=== PATIENT | male | born 2000 | race Caucasian/White ===

== ENCOUNTER 2019-12-18 04:42 | Day surgery (SDC) | payer OTHER ==
[~2019-12-18] VITALS: Ht 172.7 cm; Wt 75.0 kg
[2019-12-18] VITALS (7 sets, daily range): BP systolic 103–121; BP diastolic 53–71
[2019-12-18] MEDS ORDERED: MORPHINE 4 MG/ML 1ML VIAL/SYRINGE (J2270) IV ONE (05:00)
[2019-12-18] MEDS ORDERED: NS 1,000 ML IV ONE (05:00)
[2019-12-18] MEDS ORDERED: ceFAZolin SOD 2 GM in IV 1 EA IV ONE (05:00)
[2019-12-18 05:10] LABS: BASO % 0.4 % (0.0-1.0); EOS # 0.1 10^3/uL (0.0-0.5); EOS % 0.9 % (0.0-3.0); HEMATOCRIT 40.4 % (42.0-52.0); HEMOGLOBIN 13.4 g/dl (13.5-17.5); LYMPH # 1.6 10^3/uL (1.5-5.0); LYMPH % 16.8 % (24.0-44.0); MEAN CORPUSCULAR HEMOGLOBIN 30.7 pg (27.0-33.0); MEAN CORPUSCULAR HGB CONC 33.2 g/dl (32.0-36.5); MEAN CORPUSCULAR VOLUME 92.7 fl (80.0-96.0); MONO # 0.7 10^3/uL (0.0-0.8); MONO % 6.8 % (0.0-5.0); NEUTROPHILS # 7.3 10^3/uL (1.5-8.5); NEUTROPHILS % 74.8 % (36.0-66.0); PLATELET COUNT, AUTOMATED 220 10^3/uL (150-450); RED BLOOD COUNT 4.36 10^6/uL (4.30-6.10); WHITE BLOOD COUNT 9.7 10^3/uL (4.0-10.0)
[2019-12-18 05:23] LABS: INR 1.14; PROTHROMBIN TIME 14.3 SECONDS (11.8-14.0)
[2019-12-18 05:24] LABS: PARTIAL THROMBOPLASTIN TIME 26.5 SECONDS (25.0-38.4)
[2019-12-18 05:36] LABS: ACETAMINOPHEN LEVEL < 2.0 UG/ML (10.0-30.0); BLOOD UREA NITROGEN 15 MG/DL (7-18); CALCIUM LEVEL 8.6 MG/DL (8.5-10.1); CARBON DIOXIDE LEVEL 27 MEQ/L (21-32); CHLORIDE LEVEL 107 MEQ/L (98-107); CREATININE FOR GFR 0.94 MG/DL (0.70-1.30); ETHYL ALCOHOL (ETHANOL) < 0.003 % (0.000-0.010); GLOMERULAR FILTRATION RATE > 60.0 (>60); GLUCOSE, FASTING 110 MG/DL (70-100); POTASSIUM SERUM 3.9 MEQ/L (3.5-5.1); SALICYLATE LEVEL < 1.7 MG/DL (5.0-30.0); SODIUM LEVEL 144 MEQ/L (136-145)
[2019-12-18] MEDS ORDERED: ceFAZolin SOD 2 GM in D5W MINI-BAG PLUS 50 ML IV SCH (06:30)
[2019-12-18] MEDS ORDERED: ONDANSETRON 4MG/2ML VIAL IV PRN ×2 (06:30→17:30)
[2019-12-18] MEDS ORDERED: MOM 30ML SUSPENSION UDC PO PRN (06:30)
[2019-12-18] MEDS ORDERED: BISACODYL 10 MG SUPP PR PRN (06:30)
[2019-12-18] MEDS ORDERED: ACETAMINOPHEN TAB 650MG DOSE (2X325MG) PO PRN ×2 (06:30→17:30)
[2019-12-18] MEDS ORDERED: NORCO, ANEXSIA 5/325MG TABLET (HYDROcodone/ACETAMINOPHEN) PO PRN (06:30)
[2019-12-18] MEDS: NS 1,000 ML IV SCH ×2 (09:23→14:26)
[2019-12-18] MEDS: ceFAZolin SOD 2 GM in IV 1 EA IV SCH ×2 (13:34→21:05)
[2019-12-18] MEDS ORDERED: fentaNYL 100 MCG/2 ML INJECTION (J3010) As Ordered ONE (14:54)
[2019-12-18] MEDS ORDERED: LIDOCAINE 2% 100MG/5ML SDV (FOR ANES.) As Ordered ONE (14:54)
[2019-12-18] MEDS ORDERED: propofoL 200 MG/20 ML VIAL As Ordered ONE (14:54)
[2019-12-18] MEDS ORDERED: MIDAZOLAM INJ 2MG/2ML VIAL (J2250 PER 1MG) As Ordered ONE (14:55)
[2019-12-18] MEDS ORDERED: ONDANSETRON 4MG/2ML VIAL As Ordered ONE ×2 (16:02→18:11)
[2019-12-18] MEDS ORDERED: dexameTHASONE 4 MG/ML 1ML VIAL (J1100 PER 1MG) As Ordered ONE (16:02)
[2019-12-18] MEDS ORDERED: BUPIVACAINE HCL 0.25% 30ML VIAL As Ordered ONE (16:26)
[2019-12-18] MEDS ORDERED: ceFAZolin 2 GM/D5W 50 ML IV BAG (J0690 PER 500MG) As Ordered ONE (16:29)
[2019-12-18] MEDS ORDERED: ACETAMINOPHEN 1000MG 100ML IV BTL (OFIRMEV) (J0131 PER 10MG) As Ordered ONE (16:40)
[2019-12-18] MEDS ORDERED: KETOROLAC 60 MG/2 ML VIAL As Ordered ONE (16:42)
[2019-12-18] MEDS ORDERED: oxyCODONE 5MG TAB PO PRN (17:30)
[2019-12-18] MEDS ORDERED: fentaNYL 100 MCG/2 ML INJECTION (J3010) IV PRN (17:30)
[2019-12-18] MEDS ORDERED: LR 1,000 ML IV SCH ×2 (17:30)
[2019-12-18] MEDS ORDERED: oxyCODONE 5MG TAB As Ordered ONE (18:12)
--- NOTE | 2019-12-18 21:20 | MHCRPDOC ---
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 He reports having history of depression that is been untreated. He gen erally reports that he has increasing low mood, fatigue, loss of interest in apathy that is become increasingly problematic. PAST PSYCHIATRIC HISTORY: reports being tried on Prozac when is a danger no history of inpatient admissions or suicide attempts PAST MEDICAL HISTORY: currently getting antibiotics will not be finished until 1 PM tomorrow FAMILY HISTORY: Father: depression Siblings: depression PERSONAL AND SOCIAL HISTORY: The patient was born and raised in [place]. Resides in: [place] Marital Status: S Single Children: none Employment: active duty SUBSTANCE ABUSE HISTORY: Smoking: denies ETOH: social drinking Illicit Drugs: denies LEGAL HISTORY: none noted MENTAL STATUS EXAMINATION: General: Well dressed with good hygiene Speech: Spontaneous and fluid Thought processes: Linear and logical Thought content: profound hopelessness Abstract reasoning, and computation: Intact Description of associations: Intact Description of abnormal or psychotic thoughts: no suicidal thoughts at this time Judgment: fair Insight: fair Orientation: Alert and orientated 3 Recent and remote memory: Intact Attention span and concentration: Intact Fund of knowledge: Adequate Mood: "okay" Affect: profoundly dysthymic DIAGNOSIS: 1. Major depressive disorder, recurrent, severe without psychotic features. PLAN: 1. Start Wellbutrin 150 mg daily, xl, starting tomorrow morning, order will be placed. Screens negative for eating disorders and seizures 2. Admission to inpatient mental health after 1 PM once he receives his final dose of antibiotics as we are unable to accommodate intravenous fluids on our unit. Vital Signs Vital Signs Date Time Temp Pulse Resp B/P (MAP) Pulse Ox O2 Delivery O2 Flow Rate FiO2 12/18/19 20:05 97.2 71 15 116/66 (83) 98 Room Air Laboratory Data 24H Labs Laboratory Tests 2 12/18/19 04:58: Anion Gap 10, Glomerular Filtration Rate > 60.0, Calcium Level 8.6, Salicylates Level < 1.7L, Acetaminophen Level < 2.0L, Ethyl Alcohol Level < 0.003 12/18/19 04:59: Immature Granulocyte % (Auto) 0.3, Neutrophils (%) (Auto) 74.8H, Lymphocytes (%) (Auto) 16.8L, Monocytes (%) (Auto) 6.8H, Eosinophils (%) (Auto) 0.9, Basophils (%) (Auto) 0.4, Neutrophils # (Auto) 7.3, Lymphocytes # (Auto) 1.6, Monocytes # (Auto) 0.7, Eosinophils # (Auto) 0.1, Basophils # (Auto) 0.0, Nucleated Red Blood Cells % (auto) 0.0, Prothrombin Time 14.3H, Prothromb Time International Ratio 1.14, Activated Partial Thromboplast Time 26.5 12/18/19 12:35: Coronavirus (COVID-19)(PCR) NEGATIVE Home Medications Current Medications Current Medications Medications (Trade) Dose Ordered Sig/Ruben Route PRN Reason Start Time Stop Time Status Last Admin Dose Admin Acetaminophen (Tylenol Tab) 650 mg Q4HP PRN PO MILD PAIN or TEMP > 101 12/18/19 06:30 12/18/19 17:26 DC Acetaminophen (Tylenol Tab) 650 mg Q4HP PRN PO MILD PAIN 12/18/19 17:30 Acetaminophen/ Hydrocodone Bitart ([place], Anexsia 5/325) 1 tab Q6H PRN PO MILD/MODERATE PAIN (PS 1-7) 12/18/19 06:30 12/18/19 17:28 DC 12/18/19 08:33 Bisacodyl (Dulcolax Suppository) 10 mg DAILYPRN PRN [place] CONSTIPATION 12/18/19 06:30 12/18/19 17:29 DC Cefazolin Sodium 2 gm/Dextrose 50 ml @ 100 mls/hr Q8H IV 12/18/19 06:30 12/18/19 07:41 DC Cefazolin Sodium/ Dextrose 2 gm/IV Miscellaneous Supplies 50 ml @ 75 mls/hr Q8H IV 12/18/19 13:00 12/19/19 05:39 12/18/19 21:05 Fentanyl Citrate (Sublimaze) 25 mcg Q5MP PRN IV PAIN LEVEL 5-10 12/18/19 17:30 12/18/19 18:30 DC Home Med (Med Rec Complete!) ASDIRECTED XX 12/18/19 06:30 12/18/19 06:21 DC Lactated Ringer's 1,000 ml @ 100 mls/hr Q10H IV 12/18/19 17:30 12/18/19 18:30 DC 12/18/19 17:15 Lactated Ringer's 1,000 ml @ 125 mls/hr Q8H IV 12/18/19 17:30 12/18/19 18:38 Magnesium Hydroxide (Milk Of Magnesia) 30 ml DAILYPRN PRN PO CONSTIPATION 12/18/19 06:30 12/18/19 17:29 DC Ondansetron HCl (ZOFRAN INJection) 4 mg Q4HP PRN IV NAUSEA OR VOMITING 12/18/19 17:30 12/18/19 18:30 DC 12/18/19 18:21 Ondansetron HCl (ZOFRAN INJection) 4 mg Q6HP PRN IV NAUSEA OR VOMITING 12/18/19 06:30 12/18/19 17:29 DC Oxycodone HCl (Roxicodone, Oxyir) 5 mg ASDIRECTED PRN PO PAIN LEVEL 1-4 12/18/19 17:30 12/18/19 18:30 DC 12/18/19 18:21 Oxycodone/ Acetaminophen (Percocet 5mg/ 325mg Tablet) 1 tab Q4HP PRN PO MODERATE PAIN (PS 5-7) 12/18/19 17:30 Sodium Chloride 1,000 ml @ 125 mls/hr Q8H IV 12/18/19 06:26 12/18/19 17:25 DC 12/18/19 09:23 No Active Prescriptions or Reported Meds Allergies Coded Allergies: No Known Allergies (Unverified , 12/18/19) STEFANIE MATTHEWS DO Dec 18, 2019 21:20
[2019-12-19 02:00] VITALS: BP 106/57
[2019-12-19] MEDS: ceFAZolin SOD 2 GM in IV 1 EA IV SCH (04:46)
[2019-12-19 06:00] VITALS: BP 102/53
[2019-12-19] MEDS ORDERED: PERC5TAB12 PO (08:10)
[2019-12-19] MEDS ORDERED: buPROPion **XL** TABLET 150MG (WELLBUTRIN XL) PO SCH (09:00)
--- NOTE | 2019-12-19 09:17 | CR ---
DATE OF CONSULTATION: CHIEF COMPLAINT: Left forearm laceration/suicide attempt. 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 about 5 hours ago now. He was apparently found by his supervising office. They placed a tourniquet around his upper extremity and brought him into the [facility]. I was asked to see him in consultation by the emergency department physician. He had taken off the tourniquet and placed a white gauze on the wound. Trino has never had anything like this before. Psychiatrist has been consulted by they plan to see the patient later in the morning or potentially after surgery. This laceration was apparently made with a scalpel. PAST MEDICAL HISTORY: None. MEDICATIONS: None. ALLERGIES: NO KNOWN DRUG ALLERGIES. PAST SURGICAL HISTORY: None. SOCIAL HISTORY: He is from [place], [place]. He works as a combat medic. . He is right-hand dominant. He uses vaping to inhale tobacco. He is not sure how much every day. PHYSICAL EXAM: He is a well-appearing 19-year-old man. Vital signs: Stable. Communicates appropriately. Dressings on the left forearm. This was removed. There is longitudinal approximately 6-inch laceration in the mid aspect of the left forearm. Forearm compartments are soft, edges are clean, dry, free of redness, swelling or drainage. Tourniquet has been removed from the upper extremity. There is no other obvious injuries. This appears to be relatively superficial. The flexor tendons including the flexor carpi radialis(FCR) tendon and muscle belly are expose but no obvious transverse laceration to the tendons. Strong radial pulse. Hand is warm and well perfuse. Stable flex and extend at the metacarpophalangeal (MCP), proximal interphalangeal (PIP) and distal interphalangeal joints (DIP) joints of all five digits. ASSESSMENT/PLAN: 19-year-old man has a longitudinal laceration that appears clean and dry without obvious tendon injury to the left forearm. He has had Ancef already in the emergency department and is updated with his tetanus. I recommend formal irrigation and debridement in the operating theater, followed by wound closure and possible tendon repair or exploration. We discussed pros, cons, risks, benefits nonsurgical versus surgical intervention. The risks of surgery include but not limited to infection pain, stiffness, bleeding, weakness, damage to surrounding structures, wound complications, anesthetic complications, blood clots, , other risks and need for further surgery. He wished to ahead. We signed the consent form for that as well as for possible need for blood products. I explained the pros and cons, risks benefits of that to him as well. I marked left upper extremity and placed a wet gauze over top the incision. I contacted the operating theaters. Unfortunately, it sounds like this is not able to be done until later in the day and we will add him on to the emergency slate for today at some point. Plan for psychiatry consult after the surgery but they are aware. In the meantime I will admit the patient to the hospital and continue on with antibiotics.
[2019-12-19] MEDS: PERCOCET 5MG/325MG TAB PO PRN ×2 (09:56→14:21)
[2019-12-19 10:00] VITALS: BP 122/75
--- NOTE | 2019-12-19 10:17 | RO ---
DATE OF SURGERY: 12/18/2019 PREOPERATIVE DIAGNOSIS: Left forearm self-inflicted laceration. POSTOPERATIVE DIAGNOSIS: Left forearm self-inflicted laceration. PLANNED PROCEDURE: Left forearm irrigation and debridement, wound closure, possible tendon repair. PROCEDURE PERFORMED: Left forearm irrigation and debridement and closure 6-inch laceration. OPERATIVE SURGEON: Greg Gurrola MD TECHNICAL SUPPORT ANALYST: Irineo Dover DO TYPE OF ANESTHETIC: General anesthetic. OPERATIVE PREAMBLE: This 19-year-old man gave himself a self-inflicted forearm laceration. We talked about the pros, cons, risks, benefits of going ahead with irrigation and debridement, wound closure, and exploration. Marked the left upper extremity and proceeded to surgery after having administered him Ancef until the time of surgery. I saw him in preoperative holding, reiterated the risks, and proceeded surgery. OPERATIVE REPORT: The patient was brought to the operating theater. Administered 2 grams of intravenous (IV) Ancef. They were placed supine on the operating room table. Tourniquet was applied to left upper extremity but not inflated. All bony prominences were padded. Hand table was used at the patient's left side. Limb was prepped and draped in the usual sterile fashion with iodine-based prep solution, allowing over 3 minutes prep solution drying time. Preoperative time-out was performed to confirm the site, the patient, and the surgery. General anesthesia was induced prior to the time-out. The wound was sterilely irrigated with a liter of normal saline. Wound edges were clean, dry. The radial pulse was palpable on the entire length of the incision. No obvious pulsatile bleeding. Bipolar cautery was used to control a small amount of bleeding vessels. 10 mL of 0.25% Marcaine was used in and around the incision site. Wound was clean and dry. Wound was closed 6 inches in length with subcutaneous interrupted 2-0 Vicryl suture, as well as a running stitch. I also used 3-0 Monocryl for the skin in a running fashion. Skin was cleaned with wet and dry dressing, followed by application of Steri-Strips, Adaptic, 4 x 8 gauze, and ABD dressing overwrapped with sterile 4-inch Lee bandage. The patient was woken up from general anesthetic, transferred off the operating room table, and taken to the postanesthetic care unit in stable condition. All sponge, needle, and instrument counts were correct. No complications. ESTIMATED BLOOD LOSS: 10 mL. The plan is for the patient to be discharged home when they are cleared by the psychiatry service. I have talked already and put in consultation to them, Dr. Crawley. He plans to see the patient after the surgery and when he is woken up from general anesthetic, after he is more alert after the procedure. The plan for the patient is to change the dressing postop day #2 and followup in the office in 2 weeks' time to check the wound.
[2019-12-19 14:00] VITALS: BP 117/65
== END 2019-12-19 15:26 | disposition other institution (70) ==
LOC: M ED 04:42 → M SDC 04:43 → ENRESERV 08:01 → M MS5PR 09:35 → M SDC 12-19 15:26
PROVIDERS: ATTEND Orthopaedic Surgery Sports Medicine
DX: T14.91XA Suicide attempt, initial encounter (principal); S51.812A Laceration without foreign body of left forearm, initial encounter; Y92.138 Other place on military base as the place of occurrence of the external cause; F33.9 Major depressive disorder, recurrent, unspecified; Y93.89 Activity, other specified
CPT/HCPCS: 13121; 13122; 80048; 85025; 85610; 85730; 86850; 86900; 86901; 96361; 96365; 96366; 96375; 99285; G0480; J0131; J0690; J1100; J1885; J2250; J2270; J2405; J3010; U0002

== ENCOUNTER 2019-12-19 14:04 | Inpatient (IN) | payer OTHER ==
[~2019-12-19] VITALS: Ht 172.7 cm; Wt 73.2 kg
[~2019-12-19 14:04] MED LIST: PERC5TAB12 PO
[2019-12-19] MEDS ORDERED: MAALOX 30 ML SUSP *UDC PO PRN (14:30)
[2019-12-19] MEDS ORDERED: OLANZapine ORAL DISINTEGRATING TAB 5MG PO PRN (14:30)
[2019-12-19] MEDS ORDERED: MOM 30ML SUSPENSION UDC PO PRN (14:30)
[2019-12-19 16:29] VITALS: BP 130/81
[2019-12-20] MEDS: traZODone 50 MG TAB PO PRN ×2 (00:48→21:01)
[2019-12-20] MEDS: PERCOCET 5MG/325MG TAB PO PRN ×3 (00:49→18:34)
[2019-12-20 06:31] VITALS: BP 104/55
[2019-12-20] MEDS: buPROPion 75 MG TAB PO SCH (09:06)
--- NOTE | 2019-12-20 09:14 | MHHPEPDOC ---
General Date Of Admission: Dec 19, 2019 Legal Status: 9.39 Chief Complaint "fine". History of Present Illness HISTORY OF THE PRESENT ILLNESS: Patient is a 19 -year-old , male, who presented to [facility] after gashing his arm open with a medical scalpel in an attempt to end his life, he reports that he was [place] that he survived his attempt, he reports the same symptoms that he report on the medical floor with depression and fatigue and loss of interest. He does report that he is made some progress since being on the unit, he got his 1st dose of Wellbutrin today.No changes since admission. Psychiatric Review of Systems Depression (2 or more weeks): depressed mood, insomnia/hypersomnia, feelings of excess/guilt, feelings of worthlesness, decreased energy, difficulty concentrating, suicidal thoughts Edith (4 or more days of): denies Psychosis: denies PTSD: denies Anxiety: situational anxiety, stressor related anxiety Past Psychiatric History Previous Psychiatric Diagnosis: depression. Previous Psychiatric Admissions: see previous notes. Suicide Attempts: denies. Psychiatric Follow-up: none. Psychiatric medications: none. Past Medical History Medical Problems no significant past hx Family Medical/Psychiatric HX Psychiatric Disorders: Yes (depression mother) Addiction History denies Social History Abuse/Trauma:denies. Current Living Situation: lives in [facility]. Education: [employer], [employer] . Employment: [employer]. Social Support: few. Legal: none reported. Marital: single, unmarried, no children. A-FIB/CHADSVASC A-FIB History Current/History of A-Fib/PAF?: No Problem List Problems: (1) Major depressive disorder, recurrent Status: Acute Response to Treatment: Uncontrolled Problem Text: Continue Wellbutrin 150mg XL daily (2) Occupation-related stress disorder Status: Chronic (3) Discharge planning issues Discussed With: Pt and Family Services Problem Text: DOD discharge protocol Initial Treatment Plan 1. Patient was admitted on a [9.39] status. 2. Complete history was obtained. 3. With patients permission, family will be contacted and database will be expanded. 4. Patients medication regimen will be reviewed and changed accordingly. 5. Patient will be provided with protected environment. 6. Patient will be treated with individual, group, and milieu therapies. 7. Patient will receive supportive psych-education. 8. Discharge planning will commence immediately. 9. Outpatient follow-up treatment will be strongly recommended. 10. The initial treatment plan will focus initially on: * Depression. * Risk for suicide. ESTIMATED LENGTH OF STAY: 2-3 DAYS. TIME SPENT COUNSELING AND COORDINATING INITIAL CARE: 30 minutes. Vital Signs Vital Signs Date Time Temp Pulse Resp B/P (MAP) Pulse Ox O2 Delivery O2 Flow Rate FiO2 12/20/19 06:31 97.5 56 14 104/55 (71) 97 Room Air Medications Scheduled PRN Oxycodone HCl/Acetaminophen (Percocet 5-325 mg Tablet) 1 Each Tablet, 1 TAB PO Q4H PRN for PAIN Allergies Coded Allergies: No Known Allergies (Unverified , 12/18/19) STEFANIE MATTHEWS DO Dec 20, 2019 09:14
--- NOTE | 2019-12-20 14:58 | HPEPDOC ---
General Date of Admission Dec 19, 2019 at 15:32 Date of Service: Dec 20, 2019 Chief Complaint The patient is a 19-year-old male who presented to the hospital after attempting suicide by lacerating his left wrist History of Present Illness Patient is a 19-year-old male with no significant past medical history was presented to the hospital after attempting suicide by lacerating his left wrist. 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 Patient presented to the hospital on 12/17 and received intervention with Dr. Gurrola. Patient was subsequently discharged to the inpatient mental health. Hospitalist services consultation for medical screening evaluation. Currently patient denies any headache, nausea, vomiting, chest pain, shortness of breath, palpitations, cough, abdominal pain, constipation, diarrhea, or urinary discomfort. He denies any recent fevers or chills. Reports that his appetite is fairly normal and denies any significant changes in his weight. Home Medications Scheduled PRN Oxycodone HCl/Acetaminophen (Percocet 5-325 mg Tablet) 1 Each Tablet, 1 TAB PO Q4H PRN for PAIN Allergies Coded Allergies: No Known Allergies (Unverified , 12/18/19) Past Medical History Medical History No reported significant past medical history Surgical History Left forearm self-inflicted laceration repair with irrigation and debridement with closure by Dr. Gurrola on 12/18/2019 Family History - Patient reports his mother and father without any significant medical problems Social History - Denies the use of illicit drugs; patient reports he uses a vape for the last 1.5 years, he also reports social alcohol use - Denies recent travel or sick contacts - Lives in the [place] - Occupation; medic in the [employer] Review of Systems Other systems 10 point review of systems complete, all negative otherwise stated in HPI Vital Signs - Vitals: BP 104/55, HR 56, RR 18, Sat 97%RA, Temp 97.5F - General: Sitting up in chair, no acute distress, AAOx3 - HEENT: NC, AT, PERRLA, EOMI - CVS: RRR, +S1S2 - Lungs: Fair air entry bilaterally, No appreciable wheezing / rales / rhonchi - Abdomen: Soft, Non-distended, Non-tender - Extremities: No lower extremity edema, No calf tenderness, Left wrist with compression dressing in place - Neuro: No focal motor or sensory deficit - Skin: No visible rashes Plan / VTE VTE Prophylaxis Ordered?: Yes Plan Plan Suicidal attempt with laceration of left wrist - Patient has been admitted to the inpatient mental health unit under the care of psychiatry - Currently being managed by psychiatry Left wrist laceration - Status post repair on 12/18/2019 - Consulted orthopedic surgery for further wound care instructions - c/w pain control as ordered DVT prophylaxis - Will c/w early ambulation Female psychiatry resident was present throughout the duration of this history and physical examination Thank you for this consult; please reconsult as needed MONO MONTANO MD Dec 20, 2019 14:58
[2019-12-20 17:13] VITALS: BP 123/60
[2019-12-20] MEDS: IBUPROFEN 400 MG TAB PO PRN (21:01)
[2019-12-21 06:33] VITALS: BP 107/57
[2019-12-21] MEDS: buPROPion 75 MG TAB PO SCH (07:46)
[2019-12-21] MEDS: IBUPROFEN 400 MG TAB PO PRN (07:46)
--- NOTE | 2019-12-21 09:27 | MHIPNPDOC ---
[facility] Progress Note Progress Note DOS 12/21/2019 Events Overnight: none Group Attendance:: intermittently Symptom changes (psych ROS): reports good improvement and fatigue, loss of interest and lassitude with life, reports being more Future orientated and feeling improved on the medicine. Staff Report: pleasant, respectful, much more hopeful statements made. Medical ROS: [Gen: -fevers, chills] [Cardio: -chest pain, palpations] [[place]: -SOB, cough] [GI: -N,V,D,C] [Neuro: -tremors, msk stiffness] [Derm: -rash] MSE: Vitals: Below [General: Well dressed with good hygiene Speech: Spontaneous and fluid Thought processes: Linear and logical Thought content: Future orientated Abstract reasoning, and computation: Intact Description of associations: Intact Description of abnormal or psychotic thoughts:Denies any suicidal or homicidal ideation. Denies any auditory or visual hallucinations. Does not appear to be responding to internal stimuli. Does not appear to be endorsing any bizarre or paranoid ideation. Judgment: fair Insight: fair Orientation: Alert and orientated 3 Recent and remote memory: Intact Attention span and concentration: Intact Fund of knowledge: Adequate Mood: "okay" Affect: Euthymic with a full range] Vital Signs Vital Signs Date Time Temp Pulse Resp B/P (MAP) Pulse Ox O2 Delivery O2 Flow Rate FiO2 12/21/19 06:33 99.2 68 16 107/57 (74) 99 Room Air Current Medications Current Medications Medications (Trade) Dose Ordered Sig/Ruben Route PRN Reason Start Time Stop Time Status Last Admin Dose Admin Al Hydrox/Mg Hydrox/Simethicone (Mylanta) 30 ml Q4HP PRN PO HEARTBURN/INDIGESTION 12/19/19 14:30 Bupropion HCl (Wellbutrin) 150 mg DAILY PO 12/20/19 09:00 12/21/19 07:46 Ibuprofen (Advil) 400 mg Q6HP PRN PO PAIN 12/19/19 14:30 12/21/19 07:46 Magnesium Hydroxide (Milk Of Magnesia) 30 ml DAILYPRN PRN PO CONSTIPATION 12/19/19 14:30 Olanzapine (ZyPREXA ZYDIS) 5 mg Q4HP PRN PO ANXIETY/AGITATION 12/19/19 14:30 Oxycodone/ Acetaminophen (Percocet 5mg/ 325mg Tablet) 1 tab Q6HP PRN PO MILD/MODERATE PAIN (PS 1-7) 12/19/19 18:15 12/21/19 18:14 12/20/19 18:34 Trazodone HCl (Desyrel) 50 mg QHSP PRN PO INSOMNIA 12/19/19 14:30 12/20/19 21:01 Allergies Coded Allergies: No Known Allergies (Unverified , 12/18/19) Problems (1) Major depressive disorder, recurrent Status: Acute Response to Treatment: Stable Problem Text: Continue Wellbutrin 150 mg extended release (2) Occupation-related stress disorder Status: Chronic Problem Text: Recommend outpatient therapy. Plan / VTE VTE Prophylaxis Ordered?: No Plan Diet: Continue Current Activity: Continue Current Anticipated Discharge: Home ( discharge tomorrow) STEFANIE MATTHEWS DO Dec 21, 2019 09:27
[2019-12-21 17:23] VITALS: BP 123/58
[2019-12-21] MEDS: traZODone 50 MG TAB PO PRN (21:36)
[2019-12-22 06:13] VITALS: BP 131/60
[2019-12-22] MEDS: buPROPion 75 MG TAB PO SCH (09:44)
--- NOTE | 2019-12-22 09:55 | MHDSPDOC ---
[facility] Discharge Summary Discharge Summary DATE OF ADMISSION: Dec 19, 2019 at 15:32 DATE OF DISCHARGE: DISCHARGE DIAGNOSES: 1. . 2. . REASON FOR ADMISSION: CONSULTANTS INVOLVED: TREATMENT AND PROGRESS ON THE UNIT : . HOSPITAL COURSE: DISCHARGE ASSESSMENT: MENTAL STATUS EXAMINATION ON DISCHARGE: Patient is a -year old male, who is . Speech is . Language skills are . Thought processes including: . Thought content: . Abstract reasoning, and computation: . Description of associations: . Description of abnormal or psychotic thoughts: . Judgment: . Insight: . Orientation to . Recent and remote memory: . Attention span and concentration: . Language: . Fund of knowledge: . Mood: . Affect: . MEDICATIONS ON DISCHARGE: - for . - for . - for . PLAN/FOLLOWUP ARRANGEMENTS: . The amount of time spent in the coordination of care for this patient was approximately minutes. Vital Signs/I&Os Vital Signs Date Time Temp Pulse Resp B/P (MAP) Pulse Ox O2 Delivery O2 Flow Rate FiO2 12/22/19 06:13 96.8 67 16 131/60 (83) 12/21/19 17:23 96 Room Air Medications Scheduled Bupropion HCl (Bupropion HCl) 75 Mg Tablet, 150 MG PO DAILY for mood for 7 Days, #14 Scheduled PRN Oxycodone HCl/Acetaminophen (Percocet 5-325 mg Tablet) 1 Each Tablet, 1 TAB PO Q4H PRN for PAIN, #20 Allergies Coded Allergies: No Known Allergies (Unverified , 12/18/19) STEFANIE MATTHEWS DO Dec 22, 2019 09:55
[2019-12-22] MEDS ORDERED: BUPR75TA5 PO (09:56)
--- NOTE | 2019-12-22 10:37 | MHIPNPDOC ---
[facility] Progress Note Progress Note DOS 12/22/2019 Patient met with today with nurse present for telehealth evaluation due to COVID Crisis Events Overnight:[none] Group Attendance:: at times Symptom changes (psych ROS): Affective: denies Psychotic: denies Anxiety: denies Staff Report: generally friendly and amenable, no issues Medical ROS: Reports no physical side effects her medications MSE: Vitals: Below [General: Well dressed with good hygiene Speech: Spontaneous and fluid Thought processes: Linear and logical Thought content: Future orientated Abstract reasoning, and computation: Intact Description of associations: Intact Description of abnormal or psychotic thoughts:Denies any suicidal or homicidal ideation. Denies any auditory or visual hallucinations. Does not appear to be responding to internal stimuli. Does not appear to be endorsing any bizarre or paranoid ideation. Judgment: limited Insight: limited Orientation: Alert and orientated 3 Recent and remote memory: Intact Attention span and concentration: Intact Fund of knowledge: Adequate Mood: "okay" Affect: Euthymic with a full range] Vital Signs Vital Signs Date Time Temp Pulse Resp B/P (MAP) Pulse Ox O2 Delivery O2 Flow Rate FiO2 12/22/19 06:13 96.8 67 16 131/60 (83) 12/21/19 17:23 96 Room Air Current Medications Current Medications Medications (Trade) Dose Ordered Sig/Ruben Route PRN Reason Start Time Stop Time Status Last Admin Dose Admin Al Hydrox/Mg Hydrox/Simethicone (Mylanta) 30 ml Q4HP PRN PO HEARTBURN/INDIGESTION 12/19/19 14:30 Bupropion HCl (Wellbutrin) 150 mg DAILY PO 12/20/19 09:00 12/22/19 09:44 Ibuprofen (Advil) 400 mg Q6HP PRN PO PAIN 12/19/19 14:30 12/21/19 07:46 Magnesium Hydroxide (Milk Of Magnesia) 30 ml DAILYPRN PRN PO CONSTIPATION 12/19/19 14:30 Olanzapine (ZyPREXA ZYDIS) 5 mg Q4HP PRN PO ANXIETY/AGITATION 12/19/19 14:30 Oxycodone/ Acetaminophen (Percocet 5mg/ 325mg Tablet) 1 tab Q6HP PRN PO MILD/MODERATE PAIN (PS 1-7) 12/19/19 18:15 12/21/19 18:14 DC 12/20/19 18:34 Trazodone HCl (Desyrel) 50 mg QHSP PRN PO INSOMNIA 12/19/19 14:30 12/21/19 21:36 Allergies Coded Allergies: No Known Allergies (Unverified , 12/18/19) Problems (1) Major depressive disorder, recurrent Status: Acute Response to Treatment: Stable Problem Text: Continue Wellbutrin 150 mg extended release (2) Occupation-related stress disorder Status: Chronic Problem Text: Recommend outpatient therapy. Plan / VTE VTE Prophylaxis Ordered?: No Plan Diet: Continue Current Activity: Continue Current Pt and Family Services: Other PFS (to work with for safe discharge) Anticipated Discharge: Other Anticipated D/C (will be discharged to the , however, given the severity was attempt they want to have a discharge more safely on Wednesday, at this time, I'm inclined to agree with them as his attempt was quite severe and he has rejected any attempts at convincing them to go to exterminator helper, of which he would likely benefit greatly from. Discharge on a given his severity and my concern for his now chronically elevated risk, appears excessively risky. Although he may be not pleased with that outcomeI feel that it's in his best interest.) STEFANIE MATTHEWS DO Dec 22, 2019 10:37
[2019-12-22 17:54] VITALS: BP 109/51
[2019-12-22] MEDS: traZODone 50 MG TAB PO PRN (22:33)
[2019-12-23 06:16] VITALS: BP 108/62
[2019-12-23] MEDS: buPROPion 75 MG TAB PO SCH (09:45)
--- NOTE | 2019-12-23 10:20 | MHIPNPDOC ---
[facility] Progress Note Progress Note DOS 12/23/2019 Patient met with today with nurse present for telehealth evaluation due to COVID Crisis Events Overnight:[none] Group Attendance:: more frequent Symptom changes (psych ROS): Affective: improving depression and loss of interest Psychotic:[None today] Anxiety: situational related to discharge Staff Report: has been friendly and amenable, patient is open to going to long- term after discussion with the [employer] command Medical ROS: [Gen: -fevers, chills] [Cardio: -chest pain, palpations] [[place]: -SOB, cough] [GI: -N,V,D,C] [Neuro: -tremors, msk stiffness] [Derm: -rash] MSE: Vitals: Below [General: Well dressed with good hygiene Speech: Spontaneous and fluid Thought processes: Linear and logical Thought content: Future orientated Abstract reasoning, and computation: Intact Description of associations: Intact Description of abnormal or psychotic thoughts:Denies any suicidal or homicidal ideation. Denies any auditory or visual hallucinations. Does not appear to be responding to internal stimuli. Does not appear to be endorsing any bizarre or paranoid ideation. Judgment: fair Insight: fair Orientation: Alert and orientated 3 Recent and remote memory: Intact Attention span and concentration: Intact Fund of knowledge: Adequate Mood: "okay" Affect: Euthymic with a full range] Vital Signs Vital Signs Date Time Temp Pulse Resp B/P (MAP) Pulse Ox O2 Delivery O2 Flow Rate FiO2 12/23/19 06:16 97.3 50 14 108/62 (77) 98 Room Air Current Medications Current Medications Medications (Trade) Dose Ordered Sig/Ruben Route PRN Reason Start Time Stop Time Status Last Admin Dose Admin Al Hydrox/Mg Hydrox/Simethicone (Mylanta) 30 ml Q4HP PRN PO HEARTBURN/INDIGESTION 12/19/19 14:30 Bupropion HCl (Wellbutrin) 150 mg DAILY PO 12/20/19 09:00 12/23/19 09:45 Ibuprofen (Advil) 400 mg Q6HP PRN PO PAIN 12/19/19 14:30 12/21/19 07:46 Magnesium Hydroxide (Milk Of Magnesia) 30 ml DAILYPRN PRN PO CONSTIPATION 12/19/19 14:30 Olanzapine (ZyPREXA ZYDIS) 5 mg Q4HP PRN PO ANXIETY/AGITATION 12/19/19 14:30 Oxycodone/ Acetaminophen (Percocet 5mg/ 325mg Tablet) 1 tab Q6HP PRN PO MILD/MODERATE PAIN (PS 1-7) 12/19/19 18:15 12/21/19 18:14 DC 12/20/19 18:34 Trazodone HCl (Desyrel) 50 mg QHSP PRN PO INSOMNIA 12/19/19 14:30 12/22/19 22:33 Allergies Coded Allergies: No Known Allergies (Unverified , 12/18/19) Problems (1) Major depressive disorder, recurrent Status: Acute Response to Treatment: Stable Problem Text: Continue Wellbutrin 150 mg extended release (2) Occupation-related stress disorder Status: Chronic Problem Text: Recommend outpatient therapy. Plan / VTE VTE Prophylaxis Ordered?: No Plan Diet: Continue Current Activity: Continue Current Pt and Family Services: Other PFS (referral to long-term care) Anticipated Discharge: Other Anticipated D/C (referral to long-term care) STEFANIE MATTHEWS DO Dec 23, 2019 10:20
[2019-12-23 15:58] VITALS: BP 128/65
[2019-12-23] MEDS: traZODone 50 MG TAB PO PRN (20:34)
[2019-12-23] MEDS: IBUPROFEN 400 MG TAB PO PRN (20:35)
[2019-12-24 06:08] VITALS: BP 120/53
[2019-12-24] MEDS: buPROPion 75 MG TAB PO SCH (09:07)
[2019-12-24 15:49] VITALS: BP 139/87
[2019-12-25 06:14] VITALS: BP 109/59
[2019-12-25] MEDS: buPROPion 75 MG TAB PO SCH (08:38)
--- NOTE | 2019-12-25 09:19 | MHIPNPDOC ---
[facility] Progress Note Progress Note DOS: 12/25/2019 Patient met with today with nurse present for telehealth evaluation due to COVID Crisis Events Overnight:[none] Group Attendance::[frequent] Symptom changes (psych ROS): Affective: denies any symptoms reports all previous improving Psychotic:[None today] Anxiety: [no changes] Staff Report:, friendly, amenable, and reports that he is feeling better cooperative treatment Medical ROS: [Gen: -fevers, chills] [Cardio: -chest pain, palpations] [[place]: -SOB, cough] [GI: -N,V,D,C] [Neuro: -tremors, msk stiffness] [Derm: -rash] MSE: Vitals: Below [General: Well dressed with good hygiene Speech: Spontaneous and fluid Thought processes: Linear and logical Thought content: Future orientated Abstract reasoning, and computation: Intact Description of associations: Intact Description of abnormal or psychotic thoughts:Denies any suicidal or homicidal ideation. Denies any auditory or visual hallucinations. Does not appear to be re sponding to internal stimuli. Does not appear to be endorsing any bizarre or paranoid ideation. Judgment: fair Insight: fair Orientation: Alert and orientated 3 Recent and remote memory: Intact Attention span and concentration: Intact Fund of knowledge: Adequate Mood: "okay" Affect: Euthymic with a full range] Vital Signs Vital Signs Date Time Temp Pulse Resp B/P (MAP) Pulse Ox O2 Delivery O2 Flow Rate FiO2 12/25/19 06:14 97.4 71 12 109/59 (76) Room Air 12/24/19 06:08 98 Current Medications Current Medications Medications (Trade) Dose Ordered Sig/Ruben Route PRN Reason Start Time Stop Time Status Last Admin Dose Admin Al Hydrox/Mg Hydrox/Simethicone (Mylanta) 30 ml Q4HP PRN PO HEARTBURN/INDIGESTION 12/19/19 14:30 Bupropion HCl (Wellbutrin) 150 mg DAILY PO 12/20/19 09:00 12/25/19 08:38 Ibuprofen (Advil) 400 mg Q6HP PRN PO PAIN 12/19/19 14:30 12/23/19 20:35 Magnesium Hydroxide (Milk Of Magnesia) 30 ml DAILYPRN PRN PO CONSTIPATION 12/19/19 14:30 Olanzapine (ZyPREXA ZYDIS) 5 mg Q4HP PRN PO ANXIETY/AGITATION 12/19/19 14:30 Oxycodone/ Acetaminophen (Percocet 5mg/ 325mg Tablet) 1 tab Q6HP PRN PO MILD/MODERATE PAIN (PS 1-7) 12/19/19 18:15 12/21/19 18:14 DC 12/20/19 18:34 Trazodone HCl (Desyrel) 50 mg QHSP PRN PO INSOMNIA 12/19/19 14:30 12/23/19 20:34 Allergies Coded Allergies: No Known Allergies (Unverified , 12/18/19) Problems (1) Major depressive disorder, recurrent Status: Acute Response to Treatment: Stable Problem Text: Continue Wellbutrin 150 mg extended release (2) Occupation-related stress disorder Status: Chronic Problem Text: Recommend outpatient therapy. Plan / VTE VTE Prophylaxis Ordered?: No Plan Diet: Continue Current Activity: Continue Current Pt and Family Services: Other PFS (referral to long-term care) Anticipated Discharge: Other Anticipated D/C (referral to long-term care) STEFANIE MATTHEWS DO Dec 25, 2019 09:19
[2019-12-25 16:49] VITALS: BP 132/57
[2019-12-25] MEDS: hydrOXYzine 50 MG TAB PO PRN (21:04)
[2019-12-26 06:08] VITALS: BP 112/53
[2019-12-26] MEDS: buPROPion 75 MG TAB PO SCH (08:47)
--- NOTE | 2019-12-26 09:24 | MHIPNPDOC ---
[facility] Progress Note Progress Note DOS: 12/26/2019 Patient met with today with nurse present for telehealth evaluation due to COVID Crisis Events Overnight:[none] Group Attendance::[frequent] Symptom changes (psych ROS): Affective:[none today] Psychotic:[None today] Anxiety: [no changes] Staff Report: has been friendly and amenable, no problems Medical ROS: [Gen: -fevers, chills] [Cardio: -chest pain, palpations] [[place]: -SOB, cough] [GI: -N,V,D,C] [Neuro: -tremors, msk stiffness] [Derm: -rash] MSE: Vitals: Below [General: Well dressed with good hygiene Speech: Spontaneous and fluid Thought processes: Linear and logical Thought content: Future orientated Abstract reasoning, and computation: Intact Description of associations: Intact Description of abnormal or psychotic thoughts:Denies any suicidal or homicidal ideation. Denies any auditory or visual hallucinations. Does not appear to be responding to internal stimuli. Does not appear to be endorsing any bizarre or paranoid ideation. Judgment: fair Insight: fair Orientation: Alert and orientated 3 Recent and remote memory: Intact Attention span and concentration: Intact Fund of knowledge: Adequate Mood: "okay" Affect: Euthymic with a full range] Vital Signs Vital Signs Date Time Temp Pulse Resp B/P (MAP) Pulse Ox O2 Delivery O2 Flow Rate FiO2 12/26/19 06:08 98.4 66 16 112/53 (72) 12/25/19 06:14 Room Air 12/24/19 06:08 98 Current Medications Current Medications Medications (Trade) Dose Ordered Sig/Ruben Route PRN Reason Start Time Stop Time Status Last Admin Dose Admin Al Hydrox/Mg Hydrox/Simethicone (Mylanta) 30 ml Q4HP PRN PO HEARTBURN/INDIGESTION 12/19/19 14:30 Bupropion HCl (Wellbutrin) 150 mg DAILY PO 12/20/19 09:00 12/26/19 08:47 Hydroxyzine HCl (Atarax) 50 mg QHSP PRN PO sleep 12/25/19 11:45 12/25/19 21:04 Ibuprofen (Advil) 400 mg Q6HP PRN PO PAIN 12/19/19 14:30 12/23/19 20:35 Magnesium Hydroxide (Milk Of Magnesia) 30 ml DAILYPRN PRN PO CONSTIPATION 12/19/19 14:30 Olanzapine (ZyPREXA ZYDIS) 5 mg Q4HP PRN PO ANXIETY/AGITATION 12/19/19 14:30 Oxycodone/ Acetaminophen (Percocet 5mg/ 325mg Tablet) 1 tab Q6HP PRN PO MILD/MODERATE PAIN (PS 1-7) 12/19/19 18:15 12/21/19 18:14 DC 12/20/19 18:34 Trazodone HCl (Desyrel) 50 mg QHSP PRN PO INSOMNIA 12/19/19 14:30 12/25/19 11:45 DC 12/23/19 20:34 Allergies Coded Allergies: No Known Allergies (Unverified , 12/18/19) Problems (1) Major depressive disorder, recurrent Status: Acute Response to Treatment: Stable Problem Text: Continue Wellbutrin 150 mg extended release (2) Occupation-related stress disorder Status: Chronic Problem Text: Recommend outpatient therapy. Plan / VTE VTE Prophylaxis Ordered?: No Plan Diet: Continue Current Activity: Continue Current Pt and Family Services: Other PFS (referral to long-term care) Anticipated Discharge: Other Anticipated D/C (referral to long-term care, pending transfer) STEFANIE MATTHEWS DO Dec 26, 2019 09:24
[2019-12-26 16:04] VITALS: BP 114/61
[2019-12-26] MEDS: hydrOXYzine 50 MG TAB PO PRN (20:25)
[2019-12-27 06:18] VITALS: BP 144/66
[2019-12-27] MEDS: buPROPion 75 MG TAB PO SCH (09:06)
[2019-12-27 16:07] VITALS: BP 114/63
[2019-12-27] MEDS: hydrOXYzine 50 MG TAB PO PRN (21:23)
[2019-12-28 06:27] VITALS: BP 132/60
[2019-12-28] MEDS: buPROPion 75 MG TAB PO SCH (08:43)
[2019-12-28 17:48] VITALS: BP 115/70
--- NOTE | 2019-12-28 18:04 | MHIPN ---
DATE: 12/28/2019 This is a telemedicine video appointment. It is assessment. The patient is inpatient unit. We are doing this because of the virus pandemic. He is aware of it and agrees to it. I am assigned to his care for today. CHIEF COMPLAINT: Says feels bored. SUBJECTIVE: Seen for followup in the presence of staff. Says he feels bored. He is awaiting transfer to a long-term care facility and is unsure when he will go. Meanwhile, says appetite is okay, but he has trouble with sleep. Says he finds it hard to get to sleep and to stay asleep as well. Does not think he suicidal. Says the attempt that he made was in response to a situation, which he does not feel is present anymore. MENTAL STATUS EXAMINATION: He is neat. He is cooperative. No agitation. No psychomotor retardation. Affect somewhat restricted. Denied thoughts of harming himself or anyone else. No evidence of any psychosis. Cognition is grossly intact. Judgment fair. Insight fair. ASSESSMENT: Major depressive disorder. I would suggest continuing current care but increasing the trazodone to 75 mg at night. It was recently discontinued. I would suggest resuming the trazodone but at the increased dose of 75 mg at night as needed. No other changes are made. He is encouraged to participate in activities of the unit. He will be seeing the assigned psychiatrist tomorrow. He awaits transfer to a long-term care facility. VITAL SIGNS: Blood pressure 132/60, pulse 56, temperature 98.8.
[2019-12-28] MEDS: hydrOXYzine 50 MG TAB PO PRN (20:21)
[2019-12-28] MEDS: PILL CUTTER 1 EACH XX PRN (20:21)
[2019-12-28] MEDS: traZODone 50 MG TAB PO PRN (20:21)
[2019-12-29 06:51] VITALS: BP 125/55
[2019-12-29] MEDS: buPROPion 75 MG TAB PO SCH (08:38)
--- NOTE | 2019-12-29 09:19 | MHDSPDOC ---
[facility] Discharge Summary Discharge Summary DATE OF ADMISSION: Dec 19, 2019 at 15:32 DATE OF DISCHARGE: 12/30/19 DISCHARGE DIAGNOSES: See Problem list below REASON FOR ADMISSION: 19-year-old man admitted from the medical floor after he severe suicide attempt CONSULTANTS INVOLVED:[ None (basic hospitalist screening)] TREATMENT AND PROGRESS ON THE UNIT : Medication changes: placed on Wellbutrin increase to 300 mg daily, with positive effects and treatment producing in remission of depression Behavior on unit:, friendly and amenable Treatment attendance: attended well Notable issues on presentation: severe attempt, [facility] wanted long-term inpatient State on discharge: [improved] DISCHARGE ASSESSMENT: The patient a 19 year old man, with likely depression, presented to [facility], where they treated with appropriate agent and make some improvements. Legal status considerations: Patients being transferred to long-term care facility under care of [facility] MENTAL STATUS EXAMINATION ON DISCHARGE: completed prior to discharge, as discharge will happen in the planner intern [General: Well dressed with good hygiene Speech: Spontaneous and fluid Thought processes: Linear and logical Thought content: Future orientated Abstract reasoning, and computation: Intact Description of associations: Intact Description of abnormal or psychotic thoughts:Denies any suicidal or homicidal ideation. Denies any auditory or visual hallucinations. Does not appear to be responding to internal stimuli. Does not appear to be endorsing any bizarre or paranoid ideation. Judgment: fair Insight: fair Orientation: Alert and orientated 3 Recent and remote memory: Intact Attention span and concentration: Intact Fund of knowledge: Adequate Mood: "okay" Affect: Euthymic with a full range] PLAN/FOLLOWUP ARRANGEMENTS: long-term care The amount of time spent in the coordination of care for this patient was approximately 30 minutes. Vital Signs/I&Os Vital Signs Date Time Temp Pulse Resp B/P (MAP) Pulse Ox O2 Delivery O2 Flow Rate FiO2 12/29/19 06:51 97.7 72 14 125/55 (78) 96 Room Air Medications Scheduled Bupropion HCl (Bupropion HCl) 75 Mg Tablet, 150 MG PO DAILY for mood for 7 Days, #14 Scheduled PRN Oxycodone HCl/Acetaminophen (Percocet 5-325 mg Tablet) 1 Each Tablet, 1 TAB PO Q4H PRN for PAIN, #20 Allergies Coded Allergies: No Known Allergies (Unverified , 12/18/19) Problems (1) Major depressive disorder, recurrent Status: Acute Response to Treatment: Stable (2) Occupation-related stress disorder Status: Chronic Plan / VTE VTE Prophylaxis Ordered?: STEFANIE Carrasco DO Dec 29, 2019 09:19
[2019-12-29 17:18] VITALS: BP 126/67
[2019-12-29] MEDS: PILL CUTTER 1 EACH XX PRN (20:20)
[2019-12-29] MEDS: hydrOXYzine 50 MG TAB PO PRN (20:20)
[2019-12-29] MEDS: traZODone 50 MG TAB PO PRN (20:20)
== END 2019-12-30 03:35 | DRG 885 ==
LOC: M PSY 15:32
PROVIDERS: ADMIT Psychiatry & Neurology Addiction Medicine; ATTEND Psychiatry & Neurology Addiction Medicine
DX: F33.9 Major depressive disorder, recurrent, unspecified (principal); F43.9 Reaction to severe stress, unspecified; Z56.6 Other physical and mental strain related to work; S61.512D Laceration without foreign body of left wrist, subsequent encounter; X78.1XXD Intentional self-harm by knife, subsequent encounter; Y92.89 Other specified places as the place of occurrence of the external cause; F17.290 Nicotine dependence, other tobacco product, uncomplicated

== ENCOUNTER → 2020-08-23 | Outpatient (CLI) | payer OTHER ==
[~2020-08-23] MED LIST changes: +BUPR75TA5 PO
--- NOTE | 2020-08-26 16:12 | SLEEPCENT ---
NOCTURNAL POLYSOMNOGRAPHY DATE: 08/23/2020 ORDERED BY: CHAVA Millard Nocturnal polysomnography was performed for evaluation of sleep physiology in this patient with a history of excessive somnolence and nonrestorative sleep. 9 hours and 35 minutes of data were reviewed. There were 479.5 minutes of sleep identified. Sleep latency was prolonged at 75.5 minutes. REM latency was mildly prolonged at 133 minutes. Sleep architecture was good with three REM cycles. Overall sleep efficiency was 84.2%. The electrocardiogram showed a sinus rhythm with an average heart rate of 56 beats per minute; rate range 40 to 84. EEG showed normal waveforms for wake and sleep. There were 17 respiratory events of 10 seconds in duration or greater for an apnea-hypopnea index within normal limits at 2.1. There was some snoring noted over the course of the study. Arousals from respiratory events occurred 5.8 times per hour. There were no oxygen desaturations less than 90%. Minor activity was noted in the limb leads. IMPRESSION: Normal nocturnal polysomnography with snoring.
== END ==
LOC: M SLEEP 20:00
PROVIDERS: ATTEND Nurse Practitioner Family
DX: R06.83 Snoring (principal)